=== PATIENT | female | born 1935 | race Asian ===

== ENCOUNTER 2022-05-15 14:45 | Inpatient (IN) | payer OTHER, MEDICAID ==
[~2022-05-15] VITALS: Ht 167.6 cm; Wt 60.8 kg
[2022-05-15] VITALS (8 sets, daily range): BP systolic 122–149
--- NOTE | 2022-05-15 14:58 | NUR ---
Placed in room 2 . Placed on lone lead lineman, blood pressure machine and pulse oximeter. To gown for exam. Side rails up. Report given to KIRSTEN GRIGGS AND KIRSTEN TERRAZAS.
--- NOTE | 2022-05-15 15:01 | NUR ---
PT BIBA FROM SNF DUE TO ABNORMAL LABS OF HGB 5.8. PT AWAKE AND ALERT A0 X0. PT NON VERBAL. PT IS ON A TRACH AT 3 LPM, 100%. PT IS BED BOUND, INCONTIENT TO B/B. PT HAS NEAL CATAHTER, AND GTUBE. PT HAS PIC LINE TO JOSEMANUEL. V/S 158/77, 83, O2 100%, 97.1,
--- NOTE | 2022-05-15 15:01 | NUR ---
MD DR KELLEY AT BEDSIDE W/ PT.
--- NOTE | 2022-05-15 15:02 | NUR ---
F 12, V 380, F1O2 40%, PEEP 6.0
--- NOTE | 2022-05-15 15:10 | NUR ---
CXR DONE AT BEDSIDE
[2022-05-15] MEDS ORDERED: CHLO473M5 PO (15:34)
[2022-05-15] MEDS ORDERED: COLL100 PO (15:34)
[2022-05-15] MEDS ORDERED: [UNRECOGNIZED DRUG - CODE] GT (15:34)
[2022-05-15] MEDS ORDERED: LEVE500T9 GT (15:34)
[2022-05-15] MEDS ORDERED: INSU100V42 (15:34)
[2022-05-15] MEDS ORDERED: POVI30LI TP (15:34)
[2022-05-15] MEDS ORDERED: FURO10VI GT (15:34)
[2022-05-15] MEDS ORDERED: HYDR-3917 GT (15:34)
[2022-05-15] MEDS ORDERED: POTA-197 GT (15:34)
[2022-05-15] MEDS ORDERED: ONDA4TAB55 GT (15:34)
[2022-05-15] MEDS ORDERED: FER300L GT (15:34)
[2022-05-15] MEDS ORDERED: MIDO10TA GT (15:34)
[2022-05-15] MEDS ORDERED: HONE15GE TP (15:34)
[2022-05-15] MEDS ORDERED: ATRMDI INH (15:34)
[2022-05-15] MEDS ORDERED: APIX2.5T GT (15:34)
[2022-05-15] MEDS ORDERED: MULT-300 GT (15:34)
[2022-05-15] MEDS ORDERED: VALP500S4 GT (15:34)
[2022-05-15] MEDS ORDERED: LANS30CA53 GT (15:34)
[2022-05-15] MEDS ORDERED: LIP40 GT (15:34)
[2022-05-15] MEDS ORDERED: ZINC500P17 GT (15:34)
[2022-05-15] MEDS ORDERED: TYLL650 GT (15:34)
[2022-05-15] MEDS ORDERED: ASCO500T20 GT (15:34)
[2022-05-15] MEDS ORDERED: PARI1CAP GT (15:34)
[2022-05-15] MEDS ORDERED: INSU100V53 SUBCUT (15:34)
--- NOTE | 2022-05-15 15:34 | NUR ---
Medication reconciliation completed with information provided by [facility]. Any prior medication reconciliation on file was reviewed and corrected.
--- NOTE | 2022-05-15 16:12 | NUR ---
DAUGHTER AT BEDSIDE W/ PT.
[2022-05-15 16:16] LABS: HEMATOCRIT 24.5 % (36-48); HEMOGLOBIN 7.5 g/dL (12.0-16.0); MEAN CORPUSCULAR HEMOGLOBIN 34 pg (27-31); MEAN CORPUSCULAR HGB CONC 31 % (32-36); MEAN CORPUSCULAR VOLUME 110 fL (79.0-98.0); PLATELET COUNT (AUTO) 240 K/uL (130-430); RED BLOOD CELL COUNT(AUTO) 2.23 MIL/uL (4.2-6.2); RED CELL DISTRIBUTION WIDTH 20.1 % (9.0-15.0); WHITE BLOOD COUNT (AUTO) 7.9 K/uL (4.8-10.8)
[2022-05-15] MEDS ORDERED: PIPERACILLIN/TAZO 3.375 GM in NS 50 ML IV ONE (16:30)
[2022-05-15 16:37] LABS: ANION GAP 5 (5-15); CALCIUM 10.6 mg/dL (8.4-11.0); CHLORIDE 118 mmol/L (98-107); CREATININE 0.73 mg/dL (0.55-1.30); GLUCOSE 140 mg/dL (70-99); UREA NITROGEN, BLOOD 49 mg/dL (8-21)
[2022-05-15 16:41] LABS: PROTHROMBIN TIME 10.5 SECS (9.5-12.5)
[2022-05-15 16:43] LABS: ALANINE AMINOTRANSFERASE 25 U/L (12-78); ALBUMIN 0.8 g/dL (3.4-4.8); ASPARTATE AMINOTRANSFERASE 48 U/L (10-37); TOTAL BILIRUBIN 0.2 mg/dL (0.0-1.0)
[2022-05-15 17:10] LABS: BAND % (MANUAL) 7 % (0-6); BASOPHILS % (MANUAL) 0 % (0-2); EOSINOPHILS % (MANUAL) 2 % (0-7); LYMPHOCYTES % (MANUAL) 11 % (20-46); MONOCYTES % (MANUAL) 10 % (0-11)
[2022-05-15] MEDS ORDERED: PIPERACILLIN/TAZOBACTAM 3.375 GM/VIAL (ZOSYN) IV ONE ×2 (17:21→23:10)
--- NOTE | 2022-05-15 19:14 | NUR ---
Report rec from Marty CURTIS.
--- NOTE | 2022-05-15 19:20 | NUR ---
Pt sleeping in bed. VSS. 96% O2 sat on vent. Pt A&O X0. Safety precuations in place and connected to monitor.
--- NOTE | 2022-05-15 19:28 | NUR ---
COVID-19 FERNANDEZ AND MRSA SWABS OBTAINED, LABELED AND SENT TO THE LAB.
[2022-05-15] MEDS: D5NS 1,000 ML IV SCH (20:08)
[2022-05-15] MEDS ORDERED: NALOXONE HCL 0.4 MG/ML AMP (NARCAN) IVP PRN (21:00)
[2022-05-15] MEDS: DOCUSATE SODIUM 100 MG/10 ML UDC PO SCH ×2 (21:00→22:09)
[2022-05-15] MEDS ORDERED: HYDROcodone/ACETAMIN 5-325 MG TAB (NORCO/ VICODIN) GT PRN (21:00)
[2022-05-15] MEDS ORDERED: PROTEIN SUPPLEMENT GT SCH (21:00)
[2022-05-15] MEDS: FERROUS SULFATE 300 MG/5 ML UDC GT SCH ×2 (21:00→22:09)
[2022-05-15] MEDS: INSULIN GLARGINE 100 UNITS/ML, 10 ML VIAL SUBCUT SCH (21:00)
[2022-05-15] MEDS: ATORVASTATIN 20 MG TABLET GT SCH ×2 (21:00→22:09)
[2022-05-15] MEDS ORDERED: ACETAMINOPHEN 650 MG/20.3 ML UDC GT PRN ×2 (21:00)
[2022-05-15] MEDS: MIDODRINE HCL 5 MG TABLET (PROAMATINE) GT SCH (21:00)
[2022-05-15] MEDS: APIXABAN 2.5 MG TABLET GT SCH (21:00)
--- NOTE | 2022-05-15 21:00 | NUR ---
Patient will be admitted to care of Dr. Dawkins. Admitted to ICU unit. Will go to room ICU 2. Belongings list completed. Complete and up to date summary report printed. SBAR report given to Triston CURTIS at bedside with opportunity for questions.
--- NOTE | 2022-05-15 21:00 | NUR ---
Patient received from ER. Lethargic, opens eyes, non-communicative. Multiple wounds, pictures taken, redressed where appropriate, noted to have deep tissue wound on sacrum and a wound on the back of her head of unknown etiology.
[2022-05-15] MEDS ORDERED: INSULIN REGULAR, HUMAN 100 UNITS/ML, 3 ML VIAL (humuLIN R) SUBCUT PRN (21:15)
[2022-05-15] MEDS: levETIRAcetam 500 MG TABLET GT ONE ×2 (21:45→22:10)
[2022-05-15] MEDS: VANCOMYCIN HCL 750 MG in NS 250 ML IV SCH (22:00)
--- NOTE | 2022-05-15 22:00 | NUR ---
Dr Gaytanium notified of g-tube obstruction. Ordered nothing through g-tube now.
--- NOTE | 2022-05-15 22:16 | NUR ---
CONSULTATION PAGED/CALLED Reason for Consultation: PNA Person Who was Notified: JAYSHREE Consulting Physician: DR. PICKERING Aix Administrator Specialty: PULMONOLOGY Ordering Physician: DR. CHAPPELL
[2022-05-15] MEDS ORDERED: ACETAMINOPHEN 650 MG SUPP.RECT RC PRN (22:45)
[2022-05-15] MEDS ORDERED: VANCOMYCIN HCL 1000 MG/VIAL IV ONE (23:11)
[2022-05-15] MEDS: levETIRAcetam 500 MG in NS 100 ML IV SCH (23:15)
[2022-05-16] VITALS (34 sets, daily range): BP systolic 117–159
[2022-05-16] MEDS: PIPERACILLIN/TAZO 3.375/DEX-IS 50 ML IV SCH ×4 (00:29→17:52)
--- NOTE | 2022-05-16 03:52 | NUR ---
CONSULTATION PAGED/CALLED Reason for Consultation: CLOGGED GT Person Who was Notified: ISABELLA Consulting Physician: DR. HOGUE Costuming Supervisor Specialty: GI Ordering Physician: DR. CHAPPELL
--- NOTE | 2022-05-16 04:05 | NUR ---
Blood bank called and states blood is still not available for transfusion. Tech states "ran out of o positive" and [facility] has a one unit limit now. Will endorse to oncoming nurse if not received by 0730.
[2022-05-16] MEDS: D5NS 1,000 ML IV SCH ×2 (04:45→09:54)
[2022-05-16 07:02] LABS: BASOPHILS % (AUTO) 0.1 % (0.0-2.0); EOSINOPHILS # (AUTO) 0.3 K/uL (0.0-0.4); EOSINOPHILS % (AUTO) 4.1 % (0.0-4.0); HEMATOCRIT 22.9 % (36-48); HEMOGLOBIN 7.4 g/dL (12.0-16.0); MEAN CORPUSCULAR HEMOGLOBIN 35 pg (27-31); MEAN CORPUSCULAR HGB CONC 32 % (32-36); MEAN CORPUSCULAR VOLUME 109 fL (79.0-98.0); MONOCYTES % (AUTO) 12.1 % (1.7-9.3); NEUTROPHILS # (AUTO) 5.8 K/uL (1.8-7.7); NEUTROPHILS % (AUTO) 71.7 % (40.0-70.0); PLATELET COUNT (AUTO) 255 K/uL (130-430); RED BLOOD CELL COUNT(AUTO) 2.11 MIL/uL (4.2-6.2); RED CELL DISTRIBUTION WIDTH 19.5 % (9.0-15.0); WHITE BLOOD COUNT (AUTO) 8.1 K/uL (4.8-10.8)
[2022-05-16 07:47] LABS: ANION GAP 3 (5-15); CALCIUM 10.2 mg/dL (8.4-11.0); CREATININE 0.66 mg/dL (0.55-1.30); GLUCOSE 91 mg/dL (70-99); POTASSIUM 3.5 mmol/L (3.5-5.1); UREA NITROGEN, BLOOD 39 mg/dL (8-21)
[2022-05-16 07:51] LABS: TOTAL IRON BIND. CAPACITY 149 ug/dL (250-450)
[2022-05-16 08:53] LABS: CHLORIDE 120 mmol/L (98-107)
[2022-05-16] MEDS ORDERED: NON-FORMULARY MEDICATION (Paricalcitol (Zemplar) 1 MCG) GT SCH (09:00)
[2022-05-16] MEDS ORDERED: LANSOPRAZOLE 30 MG CAPSULE.DR GT SCH (09:00)
[2022-05-16] MEDS: APIXABAN 2.5 MG TABLET GT SCH ×2 (09:00→20:16)
[2022-05-16] MEDS ORDERED: levETIRAcetam 500 MG TABLET GT SCH (09:00)
[2022-05-16] MEDS: VANCOMYCIN HCL 750 MG in NS 250 ML IV SCH ×3 (09:52→22:51)
[2022-05-16] MEDS: PANTOPRAZOLE SODIUM 40 MG/VIAL (PROTONIX) IVP SCH ×2 (09:52→20:14)
[2022-05-16] MEDS: INSULIN GLARGINE 100 UNITS/ML, 10 ML VIAL SUBCUT SCH ×2 (09:57→21:00)
--- NOTE | 2022-05-16 10:30 | NUR ---
BT INITIATION: Consent signed per daughter agreeing to administration of blood. Blood has been typed and crossmatched. Blood sent from blood bank. Information on unit of blood checked against patient wristband at bedside by two nurses. All information matches. Patient or responsible alliance party informed of potential complications associated with blood transfusion. Informed of possible transfusion reaction symptoms. Aware of need to notify nurse at once of itching, shortness of breath, flushing, feeling of impending doom, or other symptoms not previously present. Vital signs taken within 5 minutes prior to initiation of transfusion. RN will remain with patient for first 15 minutes of transfusion at which time vital signs will be re-assessed.
--- NOTE | 2022-05-16 10:47 | NUR ---
Joaquín PT SEEN AND EXAMINED BY DR HOGUE. HE ORDERED TO RESUME HER FEEDING AND MEDS AFTER CLEARING THE TUBING WITH WATER.
[2022-05-16] MEDS: DOCUSATE SODIUM 100 MG/10 ML UDC PO SCH ×2 (11:37→20:15)
[2022-05-16] MEDS: MIDODRINE HCL 5 MG TABLET (PROAMATINE) GT SCH ×3 (11:38→20:16)
[2022-05-16] MEDS: POTASSIUM CHLORIDE 20 MEQ/PKT PACKET GT SCH (11:38)
[2022-05-16] MEDS: ASCORBIC ACID 500 MG TABLET GT SCH (11:38)
[2022-05-16] MEDS: FERROUS SULFATE 300 MG/5 ML UDC GT SCH ×2 (11:41→20:16)
[2022-05-16] MEDS ORDERED: FERROUS SULFATE 300 MG/5 ML UDC ONE (11:45)
--- NOTE | 2022-05-16 12:00 | NUR ---
MD DR MORALES AT BEDSIDE EXAMINING THE PATIENT.
--- NOTE | 2022-05-16 12:38 | NUR ---
TEST KUB DONE AT BEDSIDE.
--- NOTE | 2022-05-16 13:10 | NUR ---
B.T. TRANSFUSION COMPLETED WITHOUT ADVERSE REACTIONS.
[2022-05-16] MEDS ORDERED: ONDANSETRON 4 MG ODT TAB GT PRN (13:30)
--- NOTE | 2022-05-16 14:20 | NUR ---
KNUCKLE BENDER DR PICKERING AT BEDSIDE EXAMINING THE PATIENT WHILE DAUGHTER SAVANA LOOKS ON. SHE PROVIDED FEW MEDICAL HISTORY TO .
[2022-05-16] MEDS ORDERED: FUROSEMIDE 20 MG/2 ML VIAL IVP ONE (14:30)
[2022-05-16] MEDS: ALBUMIN HUMAN 25% 50 ML IV SCH ×2 (15:51→20:17)
--- NOTE | 2022-05-16 16:30 | NUR ---
TEST PT HAVING ABDOMINAL ULTRA SOUND AT BEDSIDE.
[2022-05-16] MEDS: VALPROIC ACID ORAL SYRUP 250 MG/5 ML UDC GT SCH ×2 (17:51→20:15)
--- NOTE | 2022-05-16 19:35 | NUR ---
PM SHIFT ASSESSMENT Patient is awake resting in bed. VSS. IVF infusing to JOSEMANUEL LINE. Arnold catheter in place and draining to gravity. Safety precautions in place, call light within reach. Will continue to monitor.
[2022-05-16] MEDS: ATORVASTATIN 20 MG TABLET GT SCH (20:14)
[2022-05-16] MEDS: levETIRAcetam 500 MG in NS 100 ML IV SCH (20:19)
[2022-05-17] VITALS (28 sets, daily range): BP systolic 105–165
[2022-05-17] MEDS: D5NS 1,000 ML IV SCH (00:45)
[2022-05-17] MEDS: PIPERACILLIN/TAZO 3.375/DEX-IS 50 ML IV SCH ×4 (01:40→17:40)
[2022-05-17] MEDS: ALBUMIN HUMAN 25% 50 ML IV SCH ×3 (03:01→21:33)
[2022-05-17] MEDS ORDERED: ALBUMIN HUMAN 25% 50 ML IV ONE (03:04)
[2022-05-17 06:36] LABS: BILIRUBIN,URINE NEGATIVE (NEGATIVE); CLARITY/URINE CLEAR (CLEAR); COLOR,URINE YELLOW (YELLOW); GLUCOSE,URINE NEGATIVE (NEGATIVE); KETONES,URINE NEGATIVE (NEGATIVE); LEUKOCYTE ESTERASE ,URINE TRACE (NEGATIVE); NITRITE, URINE NEGATIVE (NEGATIVE); PROTEIN URINE 1+ (NEGATIVE)
[2022-05-17 06:37] LABS: BLOOD, URINE TRACE (NEGATIVE)
[2022-05-17 06:39] LABS: BASOPHILS % (AUTO) 0.1 % (0.0-2.0); EOSINOPHILS # (AUTO) 0.2 K/uL (0.0-0.4); HEMOGLOBIN 8.9 g/dL (12.0-16.0); LYMPHOCYTES # (AUTO) 0.8 K/uL (1.0-5.5); MEAN CORPUSCULAR HEMOGLOBIN 32 pg (27-31); MEAN CORPUSCULAR HGB CONC 32 % (32-36); MEAN CORPUSCULAR VOLUME 102 fL (79.0-98.0); MONOCYTES # (AUTO) 0.7 K/uL (0.0-1.0); MONOCYTES % (AUTO) 11.3 % (1.7-9.3); NEUTROPHILS # (AUTO) 4.7 K/uL (1.8-7.7); NEUTROPHILS % (AUTO) 72.6 % (40.0-70.0); PLATELET COUNT (AUTO) 212 K/uL (130-430); RED BLOOD CELL COUNT(AUTO) 2.74 MIL/uL (4.2-6.2); RED CELL DISTRIBUTION WIDTH 22.9 % (9.0-15.0); WHITE BLOOD COUNT (AUTO) 6.5 K/uL (4.8-10.8)
[2022-05-17 07:07] LABS: BACTERIA,URINE FEW /HPF (None Seen); MUCUS,URINE 1+ /LPF (None Seen); YEAST,URINE Moderate /HPF (None Seen)
[2022-05-17 07:32] LABS: ALANINE AMINOTRANSFERASE 8 U/L (12-78); ALBUMIN 1.6 g/dL (3.4-4.8); ANION GAP 6 (5-15); ASPARTATE AMINOTRANSFERASE 27 U/L (10-37); CALCIUM 9.9 mg/dL (8.4-11.0); CREATININE 0.58 mg/dL (0.55-1.30); GLUCOSE 101 mg/dL (70-99); LIPASE 122 U/L (73-393); POTASSIUM 3.2 mmol/L (3.5-5.1); TOTAL BILIRUBIN 0.5 mg/dL (0.0-1.0); UREA NITROGEN, BLOOD 33 mg/dL (8-21)
[2022-05-17 07:41] LABS: CHLORIDE 121 mmol/L (98-107)
[2022-05-17 07:48] LABS: RETICULOCYTE COUNT 2.7 % (0.5-1.5)
[2022-05-17] MEDS: ASCORBIC ACID 500 MG TABLET GT SCH (08:39)
[2022-05-17] MEDS: MULTIVITS,CA,MINERALS/IRON/FA 1 TABLET GT SCH (08:39)
[2022-05-17] MEDS: POTASSIUM CHLORIDE 20 MEQ/PKT PACKET GT SCH (08:40)
[2022-05-17] MEDS: APIXABAN 2.5 MG TABLET GT SCH ×2 (08:40→20:46)
[2022-05-17] MEDS: PANTOPRAZOLE SODIUM 40 MG/VIAL (PROTONIX) IVP SCH ×2 (08:40→20:47)
[2022-05-17] MEDS: DOCUSATE SODIUM 100 MG/10 ML UDC PO SCH ×2 (08:40→20:46)
[2022-05-17] MEDS: FERROUS SULFATE 300 MG/5 ML UDC GT SCH ×2 (08:40→20:46)
[2022-05-17] MEDS: levETIRAcetam 500 MG in NS 100 ML IV SCH ×2 (08:41→20:51)
[2022-05-17] MEDS: MIDODRINE HCL 5 MG TABLET (PROAMATINE) GT SCH ×3 (08:43→20:51)
[2022-05-17] MEDS: VALPROIC ACID ORAL SYRUP 250 MG/5 ML UDC GT SCH ×3 (08:44→20:47)
[2022-05-17] MEDS: PARICALCITOL 1 MCG GT SCH (08:46)
[2022-05-17] MEDS: POVIDONE IODINE TP SCH (08:51)
[2022-05-17] MEDS: INSULIN GLARGINE 100 UNITS/ML, 10 ML VIAL SUBCUT SCH ×2 (08:55→21:58)
--- NOTE | 2022-05-17 09:30 | NUR ---
HYGIENE TURNED PT TO HER SIDE, FOAM DRESSING FROM SACRAL AREA REMOVED, CLEANSED WOUND WITH SALINE, PAT DRY, THERA HONEY AND FOAM DRESSING TO COVER THE WOUND. PT TOLERATED WELL. ALL SHEETS CHANGED. PERINEAL CARE RENDERED.
[2022-05-17] MEDS: VANCOMYCIN HCL 750 MG in NS 250 ML IV SCH ×2 (10:21→21:36)
[2022-05-17] MEDS: CHLORHEXIDINE GLUC 0.12% 15 ML MOUTHWASH UDC MM SCH (10:22)
[2022-05-17] MEDS ORDERED: KCL 20 mEq in D5W 1000 mL 1,000 ML IV SCH (10:30)
[2022-05-17] MEDS: POTASSIUM CHLORIDE 10 MEQ in D5W 1,000 ML IV SCH (11:18)
[2022-05-17 13:06] LABS: FOLATE (FOLIC ACID) >20.0 ng/mL (>3.0)
--- NOTE | 2022-05-17 13:30 | NUR ---
MD DR MORALES WENT TO SEE THE PATIENT. HER DAUGHTER SAVANA MASSAGING THE ARMS WITH VASELINE CREAM. PT HAS PERIPHERAL IV IN RIGHT UPPER ARM. ALL EXTREMITIES SWOLLEN. DR MORALES SPOKE ABOUT PICC LINE. DAUGHTER WAS RELUCTANT, STATED THAT SHE RECEIVED A CALL FROM THE CANTEEN ATTENDANT THAT HER MOTHER WOULD BE STAYING IN THE HOSPITAL THRU THURSDAY. PATIENT NEEDS A TEMPORARY ACCESS TO CONTINUE HER IV ANTIBIOTICS. SHE AGREED WITH PLAN OF CARE. CONSENT FOR PICC SIGNED.
--- NOTE | 2022-05-17 15:07 | NUR ---
Dietitian Recommendations * Glucerna 1.5 at 50 ml/hr (goal rate), Antoine BID, Free Water Flush: 250 ml Q6h via GT Provides: 1960 kcal/day, 104 gm protein/day, and 1911 ml free water/day Meets: 92% of upper end of estimated caloric needs, 85% of upper end of estimated protein needs, and 106% of upper end of estimated fluid needs LP, MS, RD Please refer to Nutrition Assessment for details. Addendum: 05/17/22 at [address] Amended: Links added.
--- NOTE | 2022-05-17 15:30 | NUR ---
HYGIENE REPOSITIONED PT, NOTED WITH DARK COLOR STOOL, SOFT. GOOD PERINEAL CARE PROVIDED. FOAM DRESSING CHANGED.
[2022-05-17] MEDS: IPRATROPIUM BROM 0.5 MG/2.5 ML VIAL.NEB (ATROVENT) INH SCH (19:44)
[2022-05-17] MEDS: ATORVASTATIN 20 MG TABLET GT SCH (20:47)
--- NOTE | 2022-05-17 21:21 | NUR ---
CONSULTATION PAGED/CALLED Reason for Consultation: BRADYCARDIA Person Who was Notified: BEA Consulting Physician: DR. CURIEL Manager Utilization Specialty: CARDIOLOGY Ordering Physician: DR. MORALES
--- NOTE | 2022-05-17 21:38 | NUR ---
DR. MOISÉS COVARRUBIAS CALLED BACK REGARDING NEW CONSULT. UPDATED ON PT CONDITION AND ORDERS RECEIVED. WILL CARRY OUT ORDERED.
[2022-05-17] MEDS ORDERED: ATROPINE SULFATE 1 MG/10 ML SYRINGE IVP PRN (21:45)
[2022-05-18] VITALS (36 sets, daily range): BP systolic 91–147
[2022-05-18] MEDS: IPRATROPIUM BROM 0.5 MG/2.5 ML VIAL.NEB (ATROVENT) INH SCH ×4 (01:04→19:35)
[2022-05-18] MEDS: PIPERACILLIN/TAZO 3.375/DEX-IS 50 ML IV SCH ×4 (01:26→17:35)
--- NOTE | 2022-05-18 04:10 | NUR ---
WHILE BATHING PATIENT SHE BEGAN COUGHING AND DESATURATED, MARQUISE BLOOD IN LARGE AMOUNT SUCTIONED FROM TRACHEOSTOMY. PATIENT MAINTAINED SATURATION DURING EPISODE THAT LASTED APPROXIMATELY 15 MINUTES WITH CONTINUED MARQIUSE BLOOD BEING SUCTIONED FROM TRACHEOSTOMY. RESPIRATORY AT BEDSIDE, PATIENT VITAL SIGNS REMAINED STABLE BUT SHE WAS HOLDING HER BREATH DURING SUCTIONING AND AFTER. ONCE PATIENT AIRWAY WAS CLEARED AND SHE CALMED DOWN NO MORE BLOOD WAS SUCTIONED FROM TRACHEOSTOMY. RESPIRATORY CHANGED WOODY AND TUBING AND PATIENT RESTING COMFORTABLY. WILL CONTINUE TO MONITOR. CHAYA CURTIS.
[2022-05-18] MEDS: ALBUMIN HUMAN 25% 50 ML IV SCH ×3 (05:35→21:44)
[2022-05-18 06:56] LABS: BASOPHILS % (AUTO) 0.4 % (0.0-2.0); EOSINOPHILS # (AUTO) 0.2 K/uL (0.0-0.4); EOSINOPHILS % (AUTO) 3.1 % (0.0-4.0); HEMATOCRIT 30.8 % (36-48); HEMOGLOBIN 9.7 g/dL (12.0-16.0); LYMPHOCYTES # (AUTO) 0.5 K/uL (1.0-5.5); LYMPHOCYTES % (AUTO) 8.5 % (20.5-51.5); MEAN CORPUSCULAR HEMOGLOBIN 32 pg (27-31); MEAN CORPUSCULAR HGB CONC 32 % (32-36); MEAN CORPUSCULAR VOLUME 103 fL (79.0-98.0); MONOCYTES # (AUTO) 0.6 K/uL (0.0-1.0); MONOCYTES % (AUTO) 10.1 % (1.7-9.3); NEUTROPHILS # (AUTO) 4.4 K/uL (1.8-7.7); NEUTROPHILS % (AUTO) 77.9 % (40.0-70.0); PLATELET COUNT (AUTO) 190 K/uL (130-430); RED CELL DISTRIBUTION WIDTH 22.8 % (9.0-15.0); WHITE BLOOD COUNT (AUTO) 5.6 K/uL (4.8-10.8)
[2022-05-18 07:01] LABS: ALANINE AMINOTRANSFERASE 15 U/L (12-78); ALBUMIN 1.5 g/dL (3.4-4.8); ANION GAP 6 (5-15); ASPARTATE AMINOTRANSFERASE 29 U/L (10-37); CALCIUM 9.8 mg/dL (8.4-11.0); CHLORIDE 119 mmol/L (98-107); CREATININE 0.59 mg/dL (0.55-1.30); GLUCOSE 138 mg/dL (70-99); POTASSIUM 3.3 mmol/L (3.5-5.1); TOTAL BILIRUBIN 0.4 mg/dL (0.0-1.0); UREA NITROGEN, BLOOD 26 mg/dL (8-21)
[2022-05-18] MEDS: PARICALCITOL 1 MCG GT SCH (09:00)
[2022-05-18] MEDS: DOCUSATE SODIUM 100 MG/10 ML UDC PO SCH ×2 (09:00→21:35)
[2022-05-18] MEDS: APIXABAN 2.5 MG TABLET GT SCH (09:00)
[2022-05-18] MEDS: FERROUS SULFATE 300 MG/5 ML UDC GT SCH ×2 (09:03→21:35)
[2022-05-18] MEDS: POTASSIUM CHLORIDE 20 MEQ/PKT PACKET GT SCH (09:06)
[2022-05-18] MEDS: MIDODRINE HCL 5 MG TABLET (PROAMATINE) GT SCH ×3 (09:06→21:36)
[2022-05-18] MEDS: ASCORBIC ACID 500 MG TABLET GT SCH (09:06)
[2022-05-18] MEDS: VALPROIC ACID ORAL SYRUP 250 MG/5 ML UDC GT SCH ×3 (09:09→21:35)
[2022-05-18] MEDS: PANTOPRAZOLE SODIUM 40 MG/VIAL (PROTONIX) IVP SCH ×2 (09:11→21:36)
[2022-05-18] MEDS: MULTIVITS,CA,MINERALS/IRON/FA 1 TABLET GT SCH (09:12)
[2022-05-18] MEDS: levETIRAcetam 500 MG in NS 100 ML IV SCH ×2 (09:13→21:38)
[2022-05-18] MEDS: VANCOMYCIN HCL 750 MG in NS 250 ML IV SCH ×2 (09:14→21:45)
[2022-05-18] MEDS: POVIDONE IODINE TP SCH (09:20)
--- NOTE | 2022-05-18 09:22 | NUR ---
DR MURCIA WAS HERE AND SEEN PT, INFORMED MD THAT ABDOMEN WAS FIRM SINCE LAST NIGHT AND FEEDING WAS HELD. MD SAID OK TO CONTINUE/RESUME FEEDING.
[2022-05-18] MEDS: CHLORHEXIDINE GLUC 0.12% 15 ML MOUTHWASH UDC MM SCH (09:27)
[2022-05-18] MEDS: INSULIN GLARGINE 100 UNITS/ML, 10 ML VIAL SUBCUT SCH ×2 (09:47→21:00)
[2022-05-18 11:06] LABS: HEPATITIS A AB, IgM Negative (Negative); HEPATITIS B CORE AB, IgM Negative (Negative); HEPATITIS B SURFACE AG Negative (Negative)
[2022-05-18] MEDS: POTASSIUM CHLORIDE 10 MEQ in D5W 1,000 ML IV SCH (12:03)
--- NOTE | 2022-05-18 12:06 | NUR ---
DR PICKERING HERE AND SEEN PT, MADE AWARE THAT PT HAD BLEEDING FROM HER TRACHE LAST NIGHT. NEW ORDERS GIVEN.
--- NOTE | 2022-05-18 18:52 | NUR ---
PT REMAINED STABLE, G-TUBE FEEDING CONTINUED. ORDERED.
[2022-05-18] MEDS: ATORVASTATIN 20 MG TABLET GT SCH (21:36)
[2022-05-19] VITALS (37 sets, daily range): BP systolic 97–145
[2022-05-19] MEDS: IPRATROPIUM BROM 0.5 MG/2.5 ML VIAL.NEB (ATROVENT) INH SCH ×4 (01:16→19:43)
--- NOTE | 2022-05-19 04:10 | NUR ---
WHEN THIS NURSE RETURNED FROM MEAL BREAK FOUND PEG TUBE HAD BURST AND LARGE HARDENED OLD RESIDUAL TUBE FEEDING WAS ALL OVER PATIENT AND BED LINENS. NOTIFIED HEATER MECHANIC AND STOPPED TUBE FEEDING. WAS ADVISED TO INFORM DAY SHIFT FOR FURTHER INSTRUCTION.
[2022-05-19 07:04] LABS: BASOPHILS % (AUTO) 0.3 % (0.0-2.0); EOSINOPHILS # (AUTO) 0.2 K/uL (0.0-0.4); HEMATOCRIT 26.5 % (36-48); HEMOGLOBIN 8.4 g/dL (12.0-16.0); LYMPHOCYTES # (AUTO) 0.5 K/uL (1.0-5.5); LYMPHOCYTES % (AUTO) 9.3 % (20.5-51.5); MEAN CORPUSCULAR HEMOGLOBIN 32 pg (27-31); MEAN CORPUSCULAR HGB CONC 32 % (32-36); MEAN CORPUSCULAR VOLUME 102 fL (79.0-98.0); MONOCYTES # (AUTO) 0.6 K/uL (0.0-1.0); MONOCYTES % (AUTO) 11.4 % (1.7-9.3); NEUTROPHILS # (AUTO) 4.2 K/uL (1.8-7.7); PLATELET COUNT (AUTO) 158 K/uL (130-430); WHITE BLOOD COUNT (AUTO) 5.6 K/uL (4.8-10.8)
[2022-05-19 07:08] LABS: ALANINE AMINOTRANSFERASE 14 U/L (12-78); ALBUMIN 1.8 g/dL (3.4-4.8); ANION GAP 7 (5-15); ASPARTATE AMINOTRANSFERASE 18 U/L (10-37); CALCIUM 9.4 mg/dL (8.4-11.0); CHLORIDE 118 mmol/L (98-107); GLUCOSE 112 mg/dL (70-99); POTASSIUM 3.6 mmol/L (3.5-5.1); TOTAL BILIRUBIN 0.4 mg/dL (0.0-1.0); UREA NITROGEN, BLOOD 22 mg/dL (8-21)
[2022-05-19] MEDS: ALBUMIN HUMAN 25% 50 ML IV SCH ×3 (07:11→21:24)
[2022-05-19] MEDS: PIPERACILLIN/TAZO 3.375/DEX-IS 50 ML IV SCH ×3 (07:11→11:57)
--- NOTE | 2022-05-19 08:49 | NUR ---
PT RECV'D FROM NOC KIRSTEN LARKIN. PT CONT ON VENT AC 12/6/30/380 WITH O2 SAT 99-100%. LUNGS CLEAR TO DIM. CONT ON WIND COMMISSIONING TECHNICIAN WITH NSR NOTED 70, BP STABLE 124/75. OPENS EYES TO STIMULATION, CLINCHES DOWN JAW, UNABLE TO PROVIDE QUALITY ORAL CARE. PT DOES NOT FOLLOW ANY COMMAND NOR TRACK WITH EYES. PUPIL FIXED 2 CM TO RIGHT EYE WITH LEFT EYE REACTIVE TO 3MM. TRACH PRESENT SHILEY #8, DRESSING C/D/I. PRESENTS WITH MULTIPLE WOUNDS, STG 4 TO SACRUM WITH DRESSING C/D/I. ANASARCA WITH 4+ PITTING EDEMA. G-TUBE MALFUNCTION WITH OPENING IN TUBE APPROX 8 INCHES FROM SITE. CUT TUBE AT OPENING, APPLIED LOPIZ VALVE. PLACEMENT CHECKED AND VERIFIED. APPROXIMATELY 5ML OF RESIDUAL NOTED. ABDOMEN FIRM, UNKNOWN LAST BM. NEAL TO GRAVITY. PICC LINE DRESSING C/D/I. HYPOTHERMIC WITH TEMP 95.8 TEMPORAL ARTERY. BEAR HUGGER WARMER PLACED TO WARM PT TO NORMOTHERMIC. MEDS GIVEN THROUGH G-TUBE WITH 200 ML H2O FLUSH. WILL WAIT TO RESTART TUBE FEEDING IN 2 HOURS TO VERIFY TOLERATING TF. ATTENDED TO ALL PT'S NEEDS. CALL LIGHT IN REACH. WILL CONT TO MONITOR.
[2022-05-19] MEDS: INSULIN GLARGINE 100 UNITS/ML, 10 ML VIAL SUBCUT SCH ×2 (09:00→20:55)
[2022-05-19] MEDS: PARICALCITOL 1 MCG GT SCH (09:00)
[2022-05-19 09:09] LABS: FERRITIN 1239 ng/mL (15-150)
[2022-05-19] MEDS: FERROUS SULFATE 300 MG/5 ML UDC GT SCH ×2 (09:41→20:52)
[2022-05-19] MEDS: VALPROIC ACID ORAL SYRUP 250 MG/5 ML UDC GT SCH ×3 (09:41→20:12)
[2022-05-19] MEDS: POTASSIUM CHLORIDE 20 MEQ/PKT PACKET GT SCH (09:41)
[2022-05-19] MEDS: PANTOPRAZOLE SODIUM 40 MG/VIAL (PROTONIX) IVP SCH ×2 (09:43→20:12)
[2022-05-19] MEDS: DOCUSATE SODIUM 100 MG/10 ML UDC PO SCH ×2 (09:43→20:11)
[2022-05-19] MEDS: ASCORBIC ACID 500 MG TABLET GT SCH (09:43)
[2022-05-19] MEDS: MULTIVITS,CA,MINERALS/IRON/FA 1 TABLET GT SCH (09:43)
[2022-05-19] MEDS: levETIRAcetam 500 MG in NS 100 ML IV SCH ×2 (09:43→20:13)
[2022-05-19] MEDS: CHLORHEXIDINE GLUC 0.12% 15 ML MOUTHWASH UDC MM SCH (09:43)
[2022-05-19] MEDS: MIDODRINE HCL 5 MG TABLET (PROAMATINE) GT SCH ×3 (09:43→20:11)
[2022-05-19] MEDS: POVIDONE IODINE TP SCH (09:44)
[2022-05-19] MEDS: VANCOMYCIN HCL 750 MG in NS 250 ML IV SCH ×2 (09:45→21:24)
--- NOTE | 2022-05-19 10:46 | NUR ---
NO RESIDUAL NOTED FROM PEG TUBE AFTER AM MEDS AND H2O FLUSH DONE. RESTARTED TUBE FEEDING AT 40ML/HR. DR. PICKERING ROUNDED, UPDATED ON STATUS. DR. PICKERING ORDERED FOR STOOL OB IF NOT DONE YET. PT WITH BM, DARK GREEN COLOR WITH PASTE LIKE TEXTURE. WILL SEND TO LAB. DR. WOODARD ROUNDED, UPDATED ON STATUS AND INFORMED OF PEG TUBE BURST, CUT DOWN WITH NEW LOPIZ VALVE INSERTED. DR. WOODARD OK WITH RESTARTING TF, NO NEW ORDERS RECEIVED.
--- NOTE | 2022-05-19 10:51 | NUR ---
TWO STOOL OB COLLECTED ON 05/16 AND 05/18, BOTH NEGATIVE. NO STOOL SENT.
--- NOTE | 2022-05-19 10:53 | NUR ---
RECTAL TEMP 97.0 WITH BEAR HUGGER WARMING PT.
[2022-05-19] MEDS ORDERED: FUROSEMIDE 20 MG/2 ML VIAL IVP ONE (11:00)
--- NOTE | 2022-05-19 11:21 | NUR ---
REPORT GIVEN TO RNMYLES.
[2022-05-19] MEDS: POTASSIUM CHLORIDE 10 MEQ in D5W 1,000 ML IV SCH (11:57)
--- NOTE | 2022-05-19 16:02 | NUR ---
WOUND EVALUATION: Wound Consult received from Dr. Dawkins. Thank you, Dr. Dawkins, for the consult. Patient received in a [place] Bed with a mattress, awake, alert, and oriented. Patient is unable to turn independently. Erik Score is an 8. Past Medical History: CVA, Chronic Respiratory Failure, Diabetes Mellitus, Chronic Encephalopathy, Hypertension, G-tube placement, Tracheostomy. Workup in ER showed severe Anemia and Pneumonia. Recent Labs: WBC 5.6, RBC 2.60, hemoglobin 8.4, hematocrit 26.5, sodium 153, chloride 118, BUN 22, creatinine 0.70, glucose 112, BNP 411, serum total protein 4.3, albumin 1.8. Microbiology: Blood culture results x2 in progress. MRSA screen results negative. Urine culture results negative. Tracheal aspirate culture results in progress. Stool OB results negative x3. Intrinsic factors that delay wound healing: Chronic Respiratory Failure, Diabetes Mellitus, Chronic Encephalopathy, Anemia, Pneumonia, severe Hypoalbuminemia. Extrinsic factors that delay wound healing: Decreased mobility. Wound Assessment: 1. Sacral-Coccygeal area: Unstageable pressure ulcer, present on admission. Wound bed has 60% pink tissue, 40% yellow slough. No odor, scant yellow drainage. Periwound has pink tissue, surrounding tissue has dark discolored tissue. Left lateral aspect of wound near 7 o'clock extends down towards perianal area. Undermining present from 122 o'clock measuring 0.9 cm. Wound measures 9.0 cm x 5.2 cm x 1.2 cm. Recommend: Cleanse wound with normal saline. Apply moisture barrier cream to periwound. Apply Venelex ointment to wound bed. Pack wound with 1/4 inch iodoform packing strip. Cover site with sacral foam dressing. Perform wound care daily, and as needed for dressing soiling or dislodgment. 2. Left Posterior Proximal Thigh: Unstageable pressure ulcer, present on admission. Wound bed has 100% yellow slough. No odor, no drainage. Periwound intact. Wound measures 0.5 cm x 1.0 cm. Recommend: Cleanse wound with normal saline. Apply moisture barrier cream to gabriela-wound. Apply Venelex ointment to wound bed. Cover with foam dressing. Perform wound care daily, and as needed for dressing soiling or dislodgement. 3. Posterior Occiput: Unstageable pressure ulcer, present on admission. Wound bed has 100% black eschar. No odor, no drainage. Periwound intact. Dry, stable. Wound measures 5.0 cm x 10.5 cm. Recommend: Cover site with ABD pad and secure with hair net for protection. Place rolled up towel underneath cervical spine and above wound site underneath head. Offload site at all times. 4. Left Lateral Ear: Unstageable pressure ulcer, present on admission. Wound bed has 100% yellow tissue. No odor, no drainage. Periwound intact. Wound measures 0.8 cm x 0.4 cm. 5. Right Ear/Pinna: Unstageable pressure ulcer, present on admission. Wound bed has 100% black eschar. No odor, no drainage. Periwound intact. Wound measures 1.5 cm x 1.3 cm. Recommend: Cover sites with foam dressings for protection. Place rolled up towel underneath cervical spine and above wound site underneath head. Offload site at all times. 6. Right Anterior Centeno: Wound of unknown etiology, present on admission. Wound bed has 100% yellow tissue. No odor, no drainage. Periwound intact. Wound measures 1.0 cm x 1.0 cm. 7. Right Anterior Centeno, inferior to Site 6: Wound of unknown etiology, present on admission. Wound bed has 100% yellow tissue. No odor, no drainage. Periwound intact. Wound measures 0.7 cm x 0.5 cm. Recommend: Cleanse wounds with normal saline. Apply moisture barrier cream to garbiela-wounds. Apply Venelex ointment to wound beds. Cover with foam dressings. Perform wound care daily, and as needed for dressing soiling or dislodgement. 8. Right Dorsal Foot: Unstageable pressure ulcer, present on admission. Wound bed has 100% yellow slough. No odor, no drainage. Periwound intact. Wound measures 2.2 cm x 1.5 cm. Recommend: Cleanse wound with normal saline. Apply moisture barrier cream to gabriela-wound. Apply Venelex ointment to wound bed. Cover with foam dressing. Perform wound care daily, and as needed for dressing soiling or dislodgement. 9. Left Proximal Medial Thigh: Skin erosion site. Site has 95% pink tissue, 5% black scab. No odor, no drainage. Site measures 4.0 cm x 6.5 cm. Recommend: Cleanse site with mild soap and water. Pat dry. Apply Eucerin cream to involved area. Perform site care twice daily. 10. Left Lateral Lower Extremity near Knee: Wound of unknown etiology, present on admission. Wound bed has 100% red tissue. No odor, no drainage. Periwound intact. Wound measures 0.4 cm x 0.5 cm. Recommend: Cover site with foam dressing. Perform site care daily, and as needed for dressing soiling or dislodgment. 11. Right Lateral Forearm: Round, reddish colored area. No odor, no drainage. Recommend: Cleanse site with mild soap and water. Pat dry. Apply Eucerin cream to involved area. Perform site care twice daily. 12. Left Anterior Upper Extremity (Bicep through Forearm area): Large area with multiple closed blisters with sero-sanguineous fluid and multiple scabs from third spacing edema. Site has pitting edema. Entire site measures 24.5 cm x 11.5 cm. Recommend: Wrap site with Interdry Ag cloth and elevate above heart as tolerated. 13. Left Lower Extremity: Thigh has firm nonpitting edema. No odor, no drainage. Extremity inferior to knee has 3+ pitting edema. Foot has 4+ pitting edema. 14. Right Lower Extremity: Thigh has 2+ pitting edema. No odor, no drainage. Extremity inferior to knee has mild edema. Foot has 4+ pitting edema. Recommend: Elevate extremities with 2 pillows as tolerated. Also recommend: Reposition patient side to side only every 2 hours with 1 pillow underneath trunk and 1 pillow underneath pelvis at all times bilaterally (use an additional pillow to facilitate turning by placing pillow underneath 2 pillows on left side, and alternate with placement underneath 2 pillows on right side, repeat every 2 hours). Off-load pressure areas with pillows for pressure re-distribution. Offload, elevate and float bilateral heels with 1 pillow lengthwise under each extremity at all times. Perform skin care and monitor skin integrity Q shift. Use moisture barrier cream on buttocks and other moisture susceptible areas QID and as needed for soiling. Place patient on a P500 low air-loss mattress.
[2022-05-19] MEDS: ATORVASTATIN 20 MG TABLET GT SCH (20:11)
[2022-05-19] MEDS: PIPERACILLIN/TAZO 4.5 GM in NS 100 ML IV SCH (22:12)
[2022-05-20] VITALS (36 sets, daily range): BP systolic 105–157
[2022-05-20] MEDS: IPRATROPIUM BROM 0.5 MG/2.5 ML VIAL.NEB (ATROVENT) INH SCH ×4 (00:55→20:03)
[2022-05-20 06:47] LABS: BASOPHILS % (AUTO) 0.4 % (0.0-2.0); EOSINOPHILS # (AUTO) 0.3 K/uL (0.0-0.4); EOSINOPHILS % (AUTO) 4.8 % (0.0-4.0); HEMATOCRIT 24.2 % (36-48); HEMOGLOBIN 7.9 g/dL (12.0-16.0); LYMPHOCYTES # (AUTO) 0.8 K/uL (1.0-5.5); LYMPHOCYTES % (AUTO) 13.7 % (20.5-51.5); MEAN CORPUSCULAR HEMOGLOBIN 33 pg (27-31); MEAN CORPUSCULAR HGB CONC 33 % (32-36); MEAN CORPUSCULAR VOLUME 101 fL (79.0-98.0); MONOCYTES # (AUTO) 0.6 K/uL (0.0-1.0); MONOCYTES % (AUTO) 10.6 % (1.7-9.3); NEUTROPHILS # (AUTO) 4.2 K/uL (1.8-7.7); NEUTROPHILS % (AUTO) 70.5 % (40.0-70.0); PLATELET COUNT (AUTO) 174 K/uL (130-430); RED BLOOD CELL COUNT(AUTO) 2.39 MIL/uL (4.2-6.2); RED CELL DISTRIBUTION WIDTH 20.8 % (9.0-15.0)
[2022-05-20] MEDS: PIPERACILLIN/TAZO 4.5 GM in NS 100 ML IV SCH ×3 (06:51→22:02)
[2022-05-20] MEDS: ALBUMIN HUMAN 25% 50 ML IV SCH (06:51)
[2022-05-20 07:38] LABS: ALANINE AMINOTRANSFERASE 13 U/L (12-78); ALBUMIN 1.7 g/dL (3.4-4.8); ANION GAP 7 (5-15); ASPARTATE AMINOTRANSFERASE 22 U/L (10-37); CALCIUM 9.3 mg/dL (8.4-11.0); CHLORIDE 115 mmol/L (98-107); CREATININE 0.75 mg/dL (0.55-1.30); GLUCOSE 119 mg/dL (70-99); POTASSIUM 3.6 mmol/L (3.5-5.1); TOTAL BILIRUBIN 0.4 mg/dL (0.0-1.0); UREA NITROGEN, BLOOD 22 mg/dL (8-21)
[2022-05-20] MEDS: INSULIN GLARGINE 100 UNITS/ML, 10 ML VIAL SUBCUT SCH ×2 (09:00→21:12)
[2022-05-20] MEDS: PARICALCITOL 1 MCG GT SCH (09:00)
[2022-05-20] MEDS: POTASSIUM CHLORIDE 20 MEQ/PKT PACKET GT SCH (09:42)
[2022-05-20] MEDS: FERROUS SULFATE 300 MG/5 ML UDC GT SCH ×2 (09:42→20:06)
[2022-05-20] MEDS: VALPROIC ACID ORAL SYRUP 250 MG/5 ML UDC GT SCH ×3 (09:42→20:07)
[2022-05-20] MEDS: ASCORBIC ACID 500 MG TABLET GT SCH (09:43)
[2022-05-20] MEDS: MULTIVITS,CA,MINERALS/IRON/FA 1 TABLET GT SCH (09:43)
[2022-05-20] MEDS: levETIRAcetam 500 MG in NS 100 ML IV SCH (09:43)
[2022-05-20] MEDS: MIDODRINE HCL 5 MG TABLET (PROAMATINE) GT SCH ×3 (09:43→20:07)
[2022-05-20] MEDS: CHLORHEXIDINE GLUC 0.12% 15 ML MOUTHWASH UDC MM SCH (09:44)
[2022-05-20] MEDS: PANTOPRAZOLE SODIUM 40 MG/VIAL (PROTONIX) IVP SCH ×2 (09:44→20:06)
[2022-05-20] MEDS: DOCUSATE SODIUM 100 MG/10 ML UDC PO SCH ×2 (09:44→20:06)
[2022-05-20] MEDS: BALSAM PERU/CASTOR OIL 56.7 GM OINT...G. TP SCH (09:44)
[2022-05-20] MEDS: POVIDONE IODINE TP SCH (09:45)
[2022-05-20] MEDS: VANCOMYCIN HCL 750 MG in NS 250 ML IV SCH ×2 (09:45→21:13)
[2022-05-20] MEDS: POTASSIUM CHLORIDE 10 MEQ in D5W 1,000 ML IV SCH ×2 (12:07→23:04)
--- NOTE | 2022-05-20 12:34 | NUR ---
Discharge Planning: JEFFREY faxed pt referral to [facility] [phone] JEFFREY to follow up. Addendum: 05/20/22 at 1455 by Siria Marin DP JEFFREY arranged transport with [facility] [phone] BLS W/RT 7:00pm to [facility] [phone] Rm 407A. JEFFREY made CM aware patient packet taken to nurse station.
[2022-05-20] MEDS ORDERED: FUROSEMIDE 20 MG/2 ML VIAL IVP ONE (13:45)
--- NOTE | 2022-05-20 17:02 | NUR ---
RT NOTES Spoke to wound care nurseMason regarding redness around pt's tracheal stoma.
[2022-05-20] MEDS: ATORVASTATIN 20 MG TABLET GT SCH (20:11)
[2022-05-20] MEDS: LevETIRAcetam 500 MG/5 ML UDC ORAL LIQUID GT SCH (21:11)
[2022-05-21] VITALS (31 sets, daily range): BP systolic 104–155
[2022-05-21] MEDS: PIPERACILLIN/TAZO 4.5 GM in NS 100 ML IV SCH ×2 (05:50→13:12)
[2022-05-21 07:01] LABS: BASOPHILS % (AUTO) 0.2 % (0.0-2.0); EOSINOPHILS # (AUTO) 0.2 K/uL (0.0-0.4); HEMATOCRIT 24.7 % (36-48); HEMOGLOBIN 7.9 g/dL (12.0-16.0); LYMPHOCYTES # (AUTO) 0.9 K/uL (1.0-5.5); LYMPHOCYTES % (AUTO) 14.5 % (20.5-51.5); MEAN CORPUSCULAR HEMOGLOBIN 33 pg (27-31); MEAN CORPUSCULAR HGB CONC 32 % (32-36); MEAN CORPUSCULAR VOLUME 102 fL (79.0-98.0); MONOCYTES # (AUTO) 0.7 K/uL (0.0-1.0); MONOCYTES % (AUTO) 10.8 % (1.7-9.3); NEUTROPHILS # (AUTO) 4.4 K/uL (1.8-7.7); NEUTROPHILS % (AUTO) 70.5 % (40.0-70.0); PLATELET COUNT (AUTO) 157 K/uL (130-430); RED BLOOD CELL COUNT(AUTO) 2.42 MIL/uL (4.2-6.2); RED CELL DISTRIBUTION WIDTH 21.1 % (9.0-15.0); WHITE BLOOD COUNT (AUTO) 6.3 K/uL (4.8-10.8)
--- NOTE | 2022-05-21 07:25 | NUR ---
ENDORSEMENT PATIENT CARE ENDORSED TO ISIDRO CURTIS.
--- NOTE | 2022-05-21 07:30 | NUR ---
Received patient is arousable resting in bed. VSS. IVF infusing to JOSEMANUEL LINE. Arnold catheter in place and draining to gravity. Safety precautions in place, call light within reach. Will continue to monitor.
[2022-05-21] MEDS: IPRATROPIUM BROM 0.5 MG/2.5 ML VIAL.NEB (ATROVENT) INH SCH ×3 (07:34→19:45)
[2022-05-21] MEDS: POTASSIUM CHLORIDE 20 MEQ/PKT PACKET GT SCH (08:05)
[2022-05-21] MEDS: VALPROIC ACID ORAL SYRUP 250 MG/5 ML UDC GT SCH ×2 (08:05→14:53)
[2022-05-21] MEDS: FERROUS SULFATE 300 MG/5 ML UDC GT SCH (08:05)
[2022-05-21] MEDS: MIDODRINE HCL 5 MG TABLET (PROAMATINE) GT SCH ×2 (08:06→14:53)
[2022-05-21] MEDS: LevETIRAcetam 500 MG/5 ML UDC ORAL LIQUID GT SCH (08:06)
[2022-05-21] MEDS: POVIDONE IODINE TP SCH (08:07)
[2022-05-21] MEDS: DOCUSATE SODIUM 100 MG/10 ML UDC PO SCH (08:07)
[2022-05-21] MEDS: MULTIVITS,CA,MINERALS/IRON/FA 1 TABLET GT SCH (08:07)
[2022-05-21] MEDS: ASCORBIC ACID 500 MG TABLET GT SCH (08:07)
[2022-05-21] MEDS: PANTOPRAZOLE SODIUM 40 MG/VIAL (PROTONIX) IVP SCH (08:07)
[2022-05-21] MEDS: BALSAM PERU/CASTOR OIL 56.7 GM OINT...G. TP SCH (08:08)
[2022-05-21] MEDS: CHLORHEXIDINE GLUC 0.12% 15 ML MOUTHWASH UDC MM SCH (08:09)
[2022-05-21 08:37] LABS: ANION GAP 6 (5-15); CALCIUM 8.9 mg/dL (8.4-11.0); CHLORIDE 114 mmol/L (98-107); CREATININE 0.77 mg/dL (0.55-1.30); GLUCOSE 237 mg/dL (70-99); POTASSIUM 3.9 mmol/L (3.5-5.1); UREA NITROGEN, BLOOD 20 mg/dL (8-21)
[2022-05-21] MEDS: PARICALCITOL 1 MCG GT SCH (09:00)
[2022-05-21] MEDS: INSULIN GLARGINE 100 UNITS/ML, 10 ML VIAL SUBCUT SCH (09:18)
[2022-05-21] MEDS: VANCOMYCIN HCL 750 MG in NS 250 ML IV SCH (09:19)
--- NOTE | 2022-05-21 09:36 | NUR ---
Discharge Planning: DCP followed up pt will go to [facility] [phone] Rm 407A pending dc order. Addendum: 05/21/22 at 0952 by Siria Marin DP DCP to set up transport CCT with RT when final DC order given. Addendum: 05/21/22 at 1217 by Siria Marin DP DCP set up transport with [facility] CCT with RT 6:00pm P/U to [facility] [address] [phone] Rm 407A. DCP made nurse aware.
--- NOTE | 2022-05-21 11:30 | NUR ---
MD CHAPPELL CALLED AND CONFIRMED ORDER FOR DISCHARGE AND STATUS CHANGE TO TELE FOR DISHCARGE.
--- NOTE | 2022-05-21 13:41 | NUR ---
RT NOTES Update from wound care nurse: redness around tracheal stoma seen and will be treated/cared for.
[2022-05-21] MEDS ORDERED: PIPE4.5F2 IV (17:16)
--- NOTE | 2022-05-21 18:30 | NUR ---
CALLED REPORT TO VARSHA ARZOLA AT [facility] FOR PATIENT TRANSFERRING BACK. CALLED [facility] WHO IS TRANSPORTING STATED THERE WILL BE A 60 MINUTE DELAY. IF NEEDED, ALL BACK NUMBER FOR TRANSPORT IS .
--- NOTE | 2022-05-21 19:45 | NUR ---
Pt report received. Pt with eyes open, does not follow commands. Chronic [id number] with settings of A/C, 12, 380m 30%, 6. Respirations even and non-labored, SPO2 98%. Generalized 3+ pitting edema to all extremities with multiple wounds to all extremities and sacrum and are covered with clean, dry, and intact dressings. JOSEMANUEL PICC intact with D5W with 20 mEq KCl infusing at 40 mL/hr. PEG tube present with Glucerna 1.5 infusing at goal of 50 mL/hr. F/C secure and patent with cloudy yellow urine draining to bag. VSS, NAD. Daughter present to bedside, no needs verbalized at this time. Awaiting transport to [facility]. Addendum: 05/21/22 at 2041 by Eugenio Faustin RN 05/21/20222041 EIC: PEG tube feeding of Glucerna 1.5 infusing at 15 mL/hr.
--- NOTE | 2022-05-21 20:16 | NUR ---
Pt resting quietly, VSS, NAD.
--- NOTE | 2022-05-21 20:45 | NUR ---
[facility] arrives, report given to CCRT RN. Pt disconnected from IVFs and PEG tube feedings for transport. ELIA, PADMA.
--- NOTE | 2022-05-21 21:00 | NUR ---
Pt's daughter contacted and message left on voice mail to inform that pt has been transferred to [facility].
--- NOTE | 2022-05-21 21:15 | NUR ---
Pt leaves in stable condition via stretcher in c/o [facility]. Report given to KIRSTEN MAZARIEGOS. PADMA RODRIGEZ.
== END 2022-05-21 21:15 | DRG 207 ==
LOC: SED 14:45 → SIC 18:32
PROVIDERS: ADMIT Family Medicine; ATTEND Family Medicine
PROC: 5A1955Z Respiratory Ventilation, Greater than 96 Consecutive Hours (ICD-10-PCS; principal; 2022-05-15)
PROC: 30233N1 Transfusion of Nonautologous Red Blood Cells into Peripheral Vein, Percutaneous Approach (ICD-10-PCS; 2022-05-16)
PROC: 02HV33Z Insertion of Infusion Device into Superior Vena Cava, Percutaneous Approach (ICD-10-PCS; 2022-05-17)
PROC: B548ZZA Ultrasonography of Superior Vena Cava, Guidance (ICD-10-PCS; 2022-05-17)
DX: J18.9 Pneumonia, unspecified organism (principal); E43 Unspecified severe protein-calorie malnutrition; J96.90 Respiratory failure, unspecified, unspecified whether with hypoxia or hypercapnia; G93.1 Anoxic brain damage, not elsewhere classified; J90 Pleural effusion, not elsewhere classified; J96.10 Chronic respiratory failure, unspecified whether with hypoxia or hypercapnia; K94.23 Gastrostomy malfunction; Z99.11 Dependence on respirator [ventilator] status; E87.0 Hyperosmolality and hypernatremia; D63.8 Anemia in other chronic diseases classified elsewhere; E11.9 Type 2 diabetes mellitus without complications; E86.0 Dehydration; F02.80 Dementia in other diseases classified elsewhere, unspecified severity, without behavioral disturbance, psychotic disturbance, mood disturbance, and anxiety; G20 Parkinson's disease; R13.10 Dysphagia, unspecified; L89.899 Pressure ulcer of other site, unspecified stage; Y83.8 Other surgical procedures as the cause of abnormal reaction of the patient, or of later complication, without mention of misadventure at the time of the procedure; Z20.822 Contact with and (suspected) exposure to COVID-19; I10 Essential (primary) hypertension; D46.9 Myelodysplastic syndrome, unspecified; I25.2 Old myocardial infarction; Z86.73 Personal history of transient ischemic attack (TIA), and cerebral infarction without residual deficits; Z74.01 Bed confinement status; Y92.89 Other specified places as the place of occurrence of the external cause; Z68.21 Body mass index [BMI] 21.0-21.9, adult; Z93.0 Tracheostomy status
CPT/HCPCS: 36415; 36430; 36600; 71045; 74018; 76700-TC; 80048; 80053; 80074; 80202; 81000; 82272; 82607; 82728; 82746; 82803-TC; 82962; 82977; 83540; 83550; 83605; 83690; 83880; 85007; 85025; 85027; 85044; 85610-TC; 85730-TC; 86886; 86900; 86901; 86920; 87040; 87070-TC; 87081; 87086; 87205-TC; 93005; 93306; 94002; 94003; 94640; 94760; 96365; 99285; C9113; J0461; J1815; J1940; J1953; J2543; J3370; J3480; J7050; J7060; P9021; P9046; Q0162